=== PATIENT | female | born 1955 | race Caucasian/White ===

== ENCOUNTER 2020-07-21 20:28 | Observation (INO) | payer OTHER ==
[~2020-07-21] VITALS: Ht 157.5 cm; Wt 60.8 kg
--- NOTE | ~2020-07-21 | OP ---
[facility] [address] [place] [address] OPERATIVE REPORT Name: KATHLEEN STEVENS Nancy Room: [address] M.R.#: [id number] Admission: 07/22/20 Attend Phys: Sal Camacho MD Discharge: Date of : 51 Report #: [id number] THIS REPORT FOR: cc: FAM - No family physician/PCP FAM - No family physician/PCP ~ Gary Causey MD DATE OF SERVICE: 07/22/2020 PREOPERATIVE DIAGNOSIS: Acute cholecystitis. POSTOPERATIVE DIAGNOSIS: Acute cholecystitis. OPERATION: Laparoscopic cholecystectomy. SURGEON: Gary Causey MD ANESTHESIA: General. ESTIMATED BLOOD LOSS: Minimal. SPECIMEN: Gallbladder. DESCRIPTION OF PROCEDURE: After informed consent was obtained, the patient was brought to the operating room and placed supine. SCDs were placed and working, preoperative antibiotics were administered, general anesthesia was induced. The abdomen and prepped and draped in the usual sterile fashion. A 10 mm incision was made below the umbilicus. Fascia was incised and a trocar was placed. Pneumoperitoneum was established. Three right upper quadrant 5 mm ports were placed. Gallbladder was grasped at the fundus and retracted cephalad. Infundibulum was grasped and retracted laterally. I dissected out the cystic duct and cystic artery. The cystic plate was fully identified. The cystic duct and artery were clipped and ligated leaving 2 clips on the remaining duct and one on the remaining artery. Gallbladder was then taken off the liver bed with electrocautery. It was placed into an Endopouch and removed. The fascia was then closed with a [id number] 0 Vicryl. Skin was closed with 4-0 Monocryl. Incisions were sealed with Steri-Strips. COMPLICATIONS: None. DISPOSITION: The patient was taken to recovery in satisfactory condition. By: [id number] Causey MD /nt
[~2020-07-21 20:28] MED LIST: AMLODIPINE BESYL5 MG; MULTI VITAMIN1 EACH PO; NORVASC 5 MG TAB5 MG PO
[2020-07-21 20:49] VITALS: BP 158/70
[2020-07-21 20:49] LABS: URINE BILIRUBIN NEGATIVE (Negative); URINE BLOOD NEGATIVE (Negative); URINE CLARITY CLEAR; URINE COLOR YELLOW; URINE GLUCOSE-RANDOM NEGATIVE (Negative); URINE KETONES 1+ (Negative); URINE LEUKOCYTES-REFLEX NEGATIVE (Negative); URINE NITRITE-REFLEX NEGATIVE (Negative); URINE PROTEIN NEGATIVE (Negative); URINE UROBILINOGEN 0.2 E.U./dl (0.2-1.0)
[2020-07-21] MEDS ORDERED: ARIMIDEX1 MG PO (20:58)
[2020-07-21 21:27] LABS: HEMOGLOBIN 16.2 gm/dL (12.0-15.0); MCH 29.9 pg (26.0-34.0); MCHC 33.8 g/dL (28.0-37.0); MCV 88.6 fL (80.0-100.0); MPV 9.4 fl. (7.2-11.1); NUCLEATED RBCS 0 /100WBC; PLATELET COUNT* 302 thou/uL (150-400); RBC 5.41 mil/uL (4.20-5.00); RDW-CV 13.4 % (10.5-14.5); WBC 14.3 thou/uL (4.0-11.0)
[2020-07-21 21:42] LABS: CALCIUM 9.3 mg/dL (8.5-10.1); CREATININE 1.1 mg/dL (0.6-1.3); POTASSIUM 3.5 mmol/L (3.5-5.1)
[2020-07-21 21:47] LABS: ALBUMIN 4.3 g/dL (3.4-5.0); TOTAL BILIRUBIN 0.6 mg/dL (<0.1-1.0); TOTAL PROTEIN 8.6 g/dL (6.4-8.2)
[2020-07-21 22:02] LABS: ABSOLUTE LYMPHOCYTES 0.9 thou/uL (0.8-5.3); ABSOLUTE MONOCYTES 0.7 thou/uL (0.0-1.2); ABSOLUTE NEUTROPHILS 12.7 thou/uL (1.6-8.1)
[2020-07-21 22:05] LABS: LARGE PLATELETS OCCASIONAL; PLATELET ESTIMATE ADEQUATE
[2020-07-22 00:36] VITALS: BP 131/71
[2020-07-22 01:10] VITALS: BP 155/86
--- NOTE | 2020-07-22 04:18 | NUR ---
ASSUMED CARE OF PT AT 0105. PT A&OX4, VSS ON ROOM AIR, PT UP AD CLAUDIA. AT THIS TIME PAIN MED NOT REQUESTED SINCE ASSUMING CARE. PT SLEEPING WELL. PT NPO SINCE ASSUMING CARE D/T PENDING GEN SURGERY CONSULT THIS AM. WILL CONTINUE TO MONITOR.
[2020-07-22 07:30] VITALS: BP 120/70
--- NOTE | 2020-07-22 10:06 | EKG ---
[place] [address] ELECTROCARDIOGRAM REPORT Name: RODNEY,KATHLEEN Nancy Room: [address]#: [id number] Admission: 07/22/20 Attend Phys: Sal Camacho, Discharge: Date of : 51 Date of Service: 07/21/202151 Report #: [id number] THIS REPORT FOR: //name// [facility] ED Test Date: 2020-07-21 Test Time: 21:52:29 Pat Name: KATHLEEN STEVENS Department: Room: [facility] Gender: F Spray Booth Operator: PARK : 1955 Requested By: Hermila Ring Order Number: [id number] MD: Zhou Cochran Measurements Intervals [place] Rate: 67 P: 42 WA: 154 QRS: 41 QRSD: 83 T: 30 QT: 428 QTc: 452 Interpretive Statements Sinus rhythm Compared to ECG 08/20/2013 13:00:47 Sinus tachycardia no longer present Ventricular premature complex(es) no longer present Electronically Signed On 07-22-2020 10:06:02 HUMAN RESOURCES RECEPTIONIST by Zhou Cochran [email or web address] <ELECTRONICALLY SIGNED> By: Zhou Cochran MD, FACC 07/22/20 1006 51 51 Zhou Cochran MD, [facility] /EPI
--- NOTE | 2020-07-22 12:20 | NUR ---
CM COMPLETED THE INITIAL ASSESSMENT TO DISCUSS D/C PLANNING AND HOME SITUATION. PT IS A&O. PT IS AT BEDSIDE, [place]. PT IS ACTIVE AND INDEPENDENT W/CARES. PT DOES YOGA AND EXERCISE. PT DRIVES A VEHCICLE. PT HAS NO HX W/SNF OR HH. PT HAS 0 DME. CM TO CONT FOLLOW.
--- NOTE | 2020-07-22 12:34 | NUR ---
TO SURGERY AT THIS TIME.
--- NOTE | 2020-07-22 19:00 | NUR ---
A&O X4, PWD. HAD LAP JUVE WITH 4 STAB SITES ALL DERMABOND AND WALL APPROXIMATED WITH STERI STRIPS. PT UP AD CLAUDIA IN ROOM WITH STEADY GAIT. URINATING WITHOUT DIFFICULTY'S. ICE TO ABD SITES FOR COMFORT. HAD HYDROCODONE PAIN PILL X 1. NO C/O PAIN AT THIS TIME. SL RIGHT AC INTACT AND PATENT. CALL LIGHT WITHIN REACH. WILL CONTINUE TO MONITOR.
[2020-07-22 19:45] VITALS: BP 104/71
[2020-07-23 08:22] VITALS: BP 125/64
--- NOTE | 2020-07-23 09:02 | NUR ---
PATIENT HAS RESTED WELL THROUGHOUT THE NIGHT. VSS ON RA. NO C/O PAIN. ASSESSMENT CHARTED. LAP SITES X 4 ARE WELL APPROXIMATED AND CLOSED WITH DERMABOND AND STERI STRIPS. PATIENT TOLERATING REGULAR DIET. NO C/O NAUSEA. IV IN RIGHT AC-SL. PATIENT INSTRUCTED TO USE CALL LIGHT WHEN NEEDING ASSISTANCE. HOURLY ROUNDS MADE. WILL CONTINUE WITH PLAN OF CARE AND NURSING TO MONITOR.
[2020-07-23] MEDS ORDERED: HYDROCODON-ACE1 EAC7 PO (12:09)
[2020-07-23 12:23] VITALS: BP 125/64
--- NOTE | 2020-07-23 13:31 | NUR ---
PT DC TO HOME AT 1325 BY WHEELCHAIR WITH NURSING STAFF AND . IV OUT. PT STABLE. DRESSINGS C/D/I. PAPER SCRIPS GIVEN. PERSONAL ITEMS SENT WITH PT.
== END 2020-07-23 13:36 | disposition home or self-care (01) ==
LOC: M.ERS 20:28 → M.TBA-ER 07-22 00:03 → M.3W 07-22 00:03
PROVIDERS: Emergency Medicine; Nurse Practitioner Family; ADMIT Internal Medicine; ATTEND Internal Medicine
DX: K81.0 Acute cholecystitis (principal); I10 Essential (primary) hypertension; E78.00 Pure hypercholesterolemia, unspecified; Z79.899 Other long term (current) drug therapy; Z85.3 Personal history of malignant neoplasm of breast